=== PATIENT | female | born 2000 | race African-American/Black ===

== ENCOUNTER 2022-06-04 07:39 | Inpatient (IN) | payer OTHER, SELFPAY ==
[2022-06-04] VITALS (201 sets, daily range): BP systolic 52–160; BP diastolic 32–119; PULSE 25–161; RESP 16; TEMP 36.2–38.4; O2SAT 74–100; BMI 41.0
--- NOTE | 2022-06-04 09:21 | LDADM ---
This patient, Lina Harrison, was admitted to Labor/Delivery/Recovery 105 on 06/04/22 at 07:39. Plans for labor, pain management and were discussed with patient. Patient/family oriented to hospital policies and general routines including ID bracelet, bed and alarms, visiting hours, pain management, procedures, bathroom and other care routines, personal items, smoking policy, room service/diet and guest tray routines, security routines, and visiting hours. Patient/Family are encouraged to report perceived risks to care and to ask questions if they do not understand what they are told or what they should do. See OBIX for further documentation.
[2022-06-04 09:22] LABS: Basophils Percent Auto 0.3 % (0.2-1.2); Eosinophils Percent Auto 0.5 % (0-4.4); Hematocrit 39.5 % (37.0-47.0); Hemoglobin 13.3 g/dL (12.0-15.0); Immature Granulocyte Absolute 0.05 K/mm3 (0.00-0.031); Immature Granulocyte Percent A 0.7 % (0-0.5); Lymphocytes Absolute Auto 1.42 K/mm3 (0.9-3.2); Lymphocytes Percent Auto 19.1 % (18.3-44.2); Mean Corpuscular HGB Conc 33.7 g/dl (32-36); Mean Corpuscular Hemoglobin 30.5 pg (26-34); Mean Corpuscular Volume 90.6 fl (80-100); Monocytes Absolute Auto 0.5 K/mm3 (0.1-0.6); Monocytes Percent Auto 6.6 % (2.6-8.5); Neutrophils Absolute Auto 5.4 K/mm3 (1.3-6.7); Neutrophils Percent Auto 72.8 % (45.5-73.1); Platelet Count Result 295 k/mm3 (150-375); Red Blood Count 4.36 M/mm3 (4.2-5.4); Red Cell Distribution Width 13.2 % (11.5-14.5); White Blood Count 7.5 K/mm3 (4.5-10.0)
[2022-06-04] MEDS: LACTATED RINGERS 1,000 ML 125 ML IV CONT ×3 (09:36→18:05)
[2022-06-04 09:49] LABS: Alanine Aminotransferase 35 U/L (6-35); Albumin Level 4.4 g/dL (3.5-5.1); Alkaline Phosphatase 178 U/L (38-126); Anion Gap 14 mmol/L (8-16); Aspartate Amino Transferase 31 U/L (14-36); Bilirubin,Total 0.5 mg/dL (0.2-1.3); Blood Urea Nitrogen 9 mg/dL (7-17); Calcium 9.5 mg/dL (8.4-10.2); Carbon Dioxide 21 mmol/L (22-30); Chloride 102 mmol/L (98-107); Estimated CRCL calculation 144 ml/min; Estimated Glomerular Filt Rate > 60; Glucose 99 mg/dL (65-110); Potassium 3.9 mmol/L (3.4-5.0); Sodium 137 mmol/L (137-145)
[2022-06-04] MEDS: OXYTOCIN 30 UNITS/NS 500 ML 30 UNITS/500 ML BAG IV CONT (11:44)
--- NOTE | 2022-06-04 14:23 | WPDOBADMIT ---
Obstetrics - Admit Note Admission Note: record reviewed. No pertinent additions to the history and/or any subsequent changes in the physical findings that are not consistent with the expected course of the were found. Pt arrived in early labor, augmented with pitocin, anticipate vaginal delivery SVE 7-8/80/-2 AROM large amount of clear odorless fluid, FSE and IUPC placed Additions to the history and/or subsequent changes in the physical findings follow. None.
[2022-06-04 15:56] LABS: Rapid Plasma Reagin Non-Reactive (NonReactive)
[2022-06-04] MEDS: SODIUM CHLORIDE 0.9% IV 300 ML 600 ML I-UTERINE (17:24)
--- NOTE | 2022-06-04 17:37 | PM.IMHP ---
H&P: HPI History of Present Illness Date/Time: 06/04/22 17:37 pt arrived in early labor with frequent painful contractions. Pt received epidural and then was augmented with pitocin. AROM. bp's elevated last 2 visits, non severe range with normal labs. pt is asymptomatic Chief Complaint: contractions Review of Systems Review of Systems: All systems reviewed & are unremarkable except as noted in HPI and below PMFSH Family History Family History Father Diabetes mellitus Sibling Diabetes mellitus Grandparent Breast cancer Social History Social History Smoking status: Former smoker Tobacco type: cigars and e-cigarettes/vaping Substance use: never Spiritual care concerns: No Meds Home Medications and Allergies Home Medications Medication Instructions Recorded Confirmed Type prenat.vits,karen,svg-[id number] 1 tablet PO HS 05/08/22 06/04/22 History Allergies Allergy/AdvReac Type Severity Reaction Status Date / Time No Known Allergies Allergy Verified 06/04/22 09:29 Vital Signs Vital Signs - 24 hr 06/04/22 09:20 06/04/22 09:32 06/04/22 08:00 Temperature 36.5 C Pulse Rate 103 H Respiratory Rate 16 Blood Pressure 160/105 H Pulse Oximetry Oxygen Delivery Room Air 06/04/22 09:46 06/04/22 09:57 06/04/22 10:02 Temperature Pulse Rate 109 H Respiratory Rate Blood Pressure 146/41 H Pulse Oximetry 99 100 Oxygen Delivery 06/04/22 10:07 06/04/22 10:12 06/04/22 10:16 Temperature Pulse Rate 98 Respiratory Rate Blood Pressure 125/81 Pulse Oximetry 100 100 Oxygen Delivery 06/04/22 10:17 06/04/22 10:17 06/04/22 10:22 Temperature Pulse Rate 70 Respiratory Rate Blood Pressure 151/112 H Pulse Oximetry 99 100 100 Oxygen Delivery 06/04/22 10:25 06/04/22 10:27 06/04/22 10:31 Temperature Pulse Rate 78 87 84 Respiratory Rate Blood Pressure 121/78 133/86 134/79 Pulse Oximetry 100 Oxygen Delivery 06/04/22 10:32 06/04/22 10:36 06/04/22 10:37 Temperature Pulse Rate 88 Respiratory Rate Blood Pressure 142/96 H Pulse Oximetry 100 100 Oxygen Delivery 06/04/22 10:41 06/04/22 10:42 06/04/22 10:46 Temperature Pulse Rate 90 97 Respiratory Rate Blood Pressure 144/115 H 140/93 H Pulse Oximetry 100 Oxygen Delivery 06/04/22 10:47 06/04/22 10:51 06/04/22 10:52 Temperature Pulse Rate 104 H Respiratory Rate Blood Pressure 148/119 H Pulse Oximetry 100 100 Oxygen Delivery 06/04/22 10:57 06/04/22 10:58 06/04/22 11:03 Temperature Pulse Rate 91 Respiratory Rate Blood Pressure 113/84 Pulse Oximetry 100 100 Oxygen Delivery 06/04/22 11:06 06/04/22 11:08 06/04/22 11:11 Temperature Pulse Rate 98 100 Respiratory Rate Blood Pressure 127/79 130/80 Pulse Oximetry 100 Oxygen Delivery 06/04/22 11:13 06/04/22 11:16 06/04/22 11:21 Temperature Pulse Rate 82 Respiratory Rate Blood Pressure 126/84 Pulse Oximetry 100 100 100 Oxygen Delivery 06/04/22 11:26 06/04/22 11:31 06/04/22 11:36 Temperature Pulse Rate 98 Respiratory Rate Blood Pressure 118/94 H Pulse Oximetry 100 99 98 Oxygen Delivery 06/04/22 11:41 06/04/22 11:46 06/04/22 11:48 Temperature 36.6 C Pulse Rate 90 Respiratory Rate Blood Pressure 124/84 Pulse Oximetry 100 100 Oxygen Delivery 06/04/22 11:51 06/04/22 11:56 06/04/22 12:01 Temperature Pulse Rate 91 Respiratory Rate Blood Pressure 110/76 Pulse Oximetry 100 100 83 L Oxygen Delivery 06/04/22 12:05 06/04/22 12:10 06/04/22 12:15 Temperature Pulse Rate Respiratory Rate Blood Pressure Pulse Oximetry 100 100 100 Oxygen Delivery 06/04/22 12:16 06/04/22 12:20 06/04/22 12:25 Temperature Pulse Rate 73 Respiratory Rate Blood Pressure 127/81 Pulse Oximetry
--- NOTE | 2022-06-04 20:56 | P.PCNOB_ITS ---
OB - Delivery Note Procedure Delivery date: 06/04/22 Procedure: Induction method: AROM and Per Pitocin Protocol Delivery augmentation: Rupture of Membranes and Pitocin Delivery monitor: External FHT and External Uterine Route of delivery: Laceration Description: None Specimen: Yes Quantitative Blood Loss (ml): 30 Anesthesia type: Epidural Disposition: Floor Narrative: mom and baby skin to skin and stable Breeding Baby Date of : 06/04/22 Time of : 20:44 Weeks of gestation at delivery: 40 gender: Male Weight (pounds): 6 Weight (ounces): 9 presentation: vertex position: Left Occiput Anterior Placenta delivery description: Spontaneous Cord Vessel Description: 3 Vessels and Delayed Cord Clamping score one minute: 8 score five minutes: 9
[2022-06-04] MEDS: OXYTOCIN 30 UNITS/NS 500 ML 30 UNITS/500 ML BAG 125 UNITS IV CONT (21:23)
[2022-06-04] MEDS: IBUPROFEN 600 MG TABLET PO (23:54)
[2022-06-05 00:11] VITALS: BP 143/67; PULSE 80; RESP 18; TEMP 36.9; O2SAT 100
[2022-06-05 04:14] VITALS: BP 126/78; PULSE 82; RESP 18; TEMP 36.6; O2SAT 99
[2022-06-05 05:07] LABS: Hematocrit 33.7 % (37.0-47.0); Hemoglobin 11.4 g/dL (12.0-15.0)
--- NOTE | 2022-06-05 07:05 | PM.OBPNVD ---
OB - PN: Subj Subjective Date/time seen: 06/05/22 07:05 s/p vaginal delivery day 1 OB - PN: Obj Data Labs CBC & Chem 7: 06/05/22 03:27 06/04/22 09:13 Labs: Laboratory Results - last 24 hr 06/04/22 06/04/22 06/04/22 09:13 09:13 09:13 WBC 7.5 RBC 4.36 Hgb 13.3 Hct 39.5 MCV 90.6 MCH 30.5 MCHC 33.7 RDW 13.2 Plt Count 295 MPV 10.0 Immature Gran % (Auto) 0.7 H Neut % (Auto) 72.8 Lymph % (Auto) 19.1 [place] % (Auto) 6.6 Eos % (Auto) 0.5 Baso % (Auto) 0.3 Lymph # (Auto) 1.42 [place] # (Auto) 0.5 Eos # (Auto) 0.0 Baso # (Auto) 0.0 Abs Immat Gran (auto) 0.05 H Absolute Neuts (auto) 5.4 Absolute Nucleated RBC 0.0 Nucleated RBC % 0.0 Sodium Potassium Chloride Carbon Dioxide Anion Gap BUN Creatinine Estim Creat Clear Calc Estimated GFR Glucose Calcium Total Bilirubin AST ALT Alkaline Phosphatase Total Protein Albumin RPR Non-reactive Blood Type O Positive Antibody Screen Negative 06/04/22 06/05/22 09:13 03:27 WBC RBC Hgb 11.4 L Hct 33.7 L MCV MCH MCHC RDW Plt Count MPV Immature Gran % (Auto) Neut % (Auto) Lymph % (Auto) [place] % (Auto) Eos % (Auto) Baso % (Auto) Lymph # (Auto) [place] # (Auto) Eos # (Auto) Baso # (Auto) Abs Immat Gran (auto) Absolute Neuts (auto) Absolute Nucleated RBC Nucleated RBC % Sodium 137 Potassium 3.9 Chloride 102 Carbon Dioxide 21 L Anion Gap 14 BUN 9 Creatinine 0.60 L Estim Creat Clear Calc 144 Estimated GFR > 60 Glucose 99 Calcium 9.5 Total Bilirubin 0.5 AST 31 ALT 35 Alkaline Phosphatase 178 H Total Protein 9.0 H Albumin 4.4 RPR Blood Type Antibody Screen OB - PN A/P Plan day: 1 Time Spent With Patient Time: Total time spent is greater than 50% in coordination of care (as documented) at patient's floor/unit and/or counseling patient: Review of Systems Review of Systems: All systems reviewed & are unremarkable except as noted in HPI and below Exam Const: General: cooperative, healthy appearing and comfortable
--- NOTE | 2022-06-05 07:36 | WPDANLDPN2 ---
Anes-Prog Note L&D Date/Time: 06/05/22 07:36 Comfortable throughout: labor and delivery Neuraxial method: epidural Epidural/Spinal procedure site: clean & non-tender Neuro status: Neuro function grossly intact. Cardiovascular status: normal Respiratory status: normal Airway patency: baseline Mental status: baseline Post-Op hydration status: normal Vital Signs: Last Vital Signs Temp 36.6 C 06/05/22 04:14 Pulse 82 06/05/22 04:14 Resp 18 06/05/22 04:14 BP 126/78 06/05/22 04:14 Pulse Ox 99 06/05/22 04:14 O2 Del Method Room Air 06/05/22 00:11 Pain score (VAS): 09/29 I/O: Intake & Output 06/04/22 06/04/22 06/05/22 15:59 23:59 07:59 Intake Total 1000 1400 Output Total 30 Balance 1000 1370 Post-procedural complaints: none Patient feedback: Patient satisfied with anesthetic care.
[2022-06-05 08:25] VITALS: BP 127/80; PULSE 83; RESP 18; TEMP 36.7; O2SAT 100
[2022-06-05] MEDS: MULTIVIT/MIN/PREN/FOL AC/IRON TABLET 1 TAB PO (08:26)
[2022-06-05] MEDS: IBUPROFEN 600 MG TABLET PO ×2 (08:26→16:32)
[2022-06-05 12:05] VITALS: BP 122/78; PULSE 88; RESP 18; TEMP 36.2; O2SAT 100
[2022-06-05 16:00] VITALS: BP 137/93; PULSE 99; RESP 16; TEMP 37.1; O2SAT 100
[2022-06-05] MEDS: DOCUSATE SODIUM 100 MG CAPSULE PO (16:33)
[2022-06-05 19:51] VITALS: BP 120/76; PULSE 92; RESP 18; TEMP 36.1; O2SAT 100
[2022-06-05] MEDS: ACETAMINOPHEN 325 MG TABLET 650 MG PO (20:21)
[2022-06-06] MEDS: IBUPROFEN 600 MG TABLET PO (03:44)
[2022-06-06 07:45] VITALS: BP 124/74; PULSE 85; RESP 16; TEMP 36.8; O2SAT 100
[2022-06-06] MEDS: DOCUSATE SODIUM 100 MG CAPSULE PO (08:09)
[2022-06-06] MEDS: ACETAMINOPHEN 325 MG TABLET 650 MG PO (08:09)
--- NOTE | 2022-06-06 08:35 | PM.OBPNVD ---
OB - PN: Subj Subjective Date/time seen: 06/06/22 08:35 Patient comments: no complaints, pain well controlled and tolerating diet OB - PN: Obj Data Labs CBC & Chem 7: 06/05/22 03:27 06/04/22 09:13 OB - PN A/P Plan day: 2 Plan: routine care and discharge home Time Spent With Patient Time: Total time spent is greater than 50% in coordination of care (as documented) at patient's floor/unit and/or counseling patient: Exam Const: General: comfortable and no acute distress Resp: Effort & Inspection: normal respiratory effort Auscultation: no rales, no rhonchi and no wheezes Cardio: Rate: regular rate Heart sounds: no click, no murmurs and no rubs GI: GI Palp: Yes Soft to palpation and No Tenderness to palpation present (GI) Auscultation: normal bowel sounds Extrem: General: normal to inspection, no pedal edema and no calf tenderness
--- NOTE | 2022-06-06 08:36 | PM.OBDSVD ---
DS: Admitting Diagnosis Discharge Date 06/06/22 Admitting Diagnosis term OB - DS: Summary OB Procedures : None OB Procedures Intrapartum: Spontaneous Vag Delivery OB Procedures: : None Time Spent with Patient Time attestation: Total time spent providing and/or coordinating discharge services: DS: Data Data Completed and Pending Pending studies at discharge: Pending at discharge 06/05/22 07:43 Surgical [PTH] Routine Discharge Plan Discharge Discharging Clinician: William Gary Patient Disposition: Home, Self-Care Activity: pelvic rest Diet: regular Patient Instructions: Antibiotic Form Stand Alone Forms: General Discharge Information Follow-up/Referrals: William Gary MD [Physician] - Discharge Medications: Continued #2 Tablet 1 tablet PO HS Date of admission: 06/04/22 07:39 Primary Care Provider: Kavita Roldan Admitting Provider: William Gary Attending physician on admission: William Gary Condition: Stable
--- NOTE | 2022-06-06 12:55 | PC.NURSE ---
Patient viewed the discharge video Mother & Baby Care, The First Two Weeks . Patient was given the opportunity and encouraged to ask questions. Patient verbalized understanding of information shared and has been given the mother/baby guide for home reference.
== END 2022-06-06 14:10 | disposition home or self-care (01) | DRG 560 ==
LOC: ANHLDR 08:47 → ANHOB2 06-05 00:05
PROVIDERS: Advanced Practice Midwife; Admitting Provider Obstetrics & Gynecology; PCP Advanced Practice Midwife; Visit Provider Obstetrics & Gynecology
DX: O13.4 Gestational [pregnancy-induced] hypertension without significant proteinuria, complicating childbirth (principal); O76 Abnormality in fetal heart rate and rhythm complicating labor and delivery; Z3A.40 40 weeks gestation of pregnancy; Z37.0 Single live birth; Z87.891 Personal history of nicotine dependence
CPT/HCPCS: 36415; 80053; 85014; 85018; 85025; 86592; 86850; 86900; 86901; 88307; A9270; J2590; J2795; J7030; J7120